=== PATIENT | female | born 1995 ===

== ENCOUNTER 2016-10-17 01:26 | Emergency (ER) | payer BC ==
--- NOTE | 2016-10-17 02:54 | OBHP ---
Datetime: 10/17/2016 01:46 IP Adm Impression: , intrauterine ; No Active Labor IP Adm Impression Other: For Nst IP Admit Plan: Observation/Evaluation; Discharge home Admit Comment, IP Provider: 20yo with IUP at 28wks. Presents here today for NST before evaluati on at the ER for a sore Throat. Pt denies any fever or chills but reports throat pain. NST today is r eactive. Denies VB or LOF. Hendrix- occasional ctx, FHR- category 1, Cx- 0/-3 Assessment: IUP at 28weeks NST- Reactive. Plan: Transfer back to the ER for management of throat pain. Extremities - PN: Normal Abdomen - PN: Normal Lungs - PN: Normal Heart - PN: Normal Thyroid - PN: Normal General - PN: Normal FHR - Baseline A Provider: 150 Comments, ACOG Physical Exam: Abd: Soft,NT, Bs - present Gestation - Est Wks by US: 28.0 IP Chief Complaint: Maternal discomfort NICHD Variability Prov Fetus A: Moderate 6-25bpm NICHD Accel Fetus A IP Provider: [id number] FHR Category Provider Fetus A: Category I Dilatation, Provider: 0
--- NOTE | 2016-10-17 03:28 | C.PDOC ---
History Of Present Illness Patient is a 20 year old female who presents to the ER 28 weeks with a complaint of throat pain and difficulty swallowing for 1 day. Patient denies fever, chills or cough. Chief Complaint (Nursing): ENT Problem History Per: Patient History/Exam Limitations: None Onset/Duration Of Symptoms: Hrs (24) Current Symptoms Are (Timing): Still Present Quality (Mouth/Throat): Tenderness, Other (Difficulty swallowing) Symptoms Have Been: Continuous Past Medical History Reviewed: Historical Data, Nursing Documentation, Vital Signs Vital Signs: Last Vital Signs Temp 98 F 10/17/16 02:59 Pulse 88 10/17/16 02:59 Resp 18 10/17/16 02:59 BP 106/63 10/17/16 02:59 Pulse Ox 100 10/17/16 03:30 - Medical History PMH: No Chronic Diseases Surgical History: No Surg Hx Family History: States: Unknown Family Hx - Social History Hx Tobacco Use: No Hx Alcohol Use: No Hx Substance Use: No - Immunization History Hx Tetanus Toxoid Vaccination: No (not sure of last) Review Of Systems Constitutional: Negative for: Fever, Chills ENT: Positive for: Throat Pain, Other (Difficulty swallowing) Respiratory: Negative for: Cough Physical Exam - Physical Exam Appears: Non-toxic, No Acute Distress Skin: Normal Color, Warm, Dry Head: Atraumatic, Normacephalic Oral Mucosa: Moist Throat: Erythema (Tonsillar), Exudate (Tonsillar), Other (Enlarged Tonsils) Neck: Normal, Supple Lymphatic: Other (Tender cervical nodes) Chest: Symmetrical, No Tenderness Cardiovascular: Rhythm Regular, No Murmur Respiratory: Normal Breath Sounds, No Rales, No Rhonchi, No Wheezing Gastrointestinal/Abdominal: Soft, No Tenderness Neurological/Psych: Oriented x3, Normal Speech, Normal Cognition ED Course And Treatment O2 Sat by Pulse Oximetry: 100 (Room air) Pulse Ox Interpretation: Normal Medical Decision Making Medical Decision Making: Impression: 20 year old female with throat pain. Plan: * Tylenol * Amoxicillin Patient was sent to the OB ED for evaluation of baby, then returned to the ER for medical evaluation. Disposition Counseled Patient/Family Regarding: Need For Followup - Disposition Referrals: Non [facility] Provider, [Primary Care Provider] - Disposition: HOME/ ROUTINE Disposition Time: 03:25 Condition: GOOD Additional Instructions: Tylenol for pain as needed Prescriptions: Amoxicillin [Amoxil 500 mg Cap] 1 cap PO TID #21 cap Instructions: Tonsillitis (ED) Print Language: BRUNEIAN - Clinical Impression Clinical Impression: Sore throat, - Scribe Statement The provider has reviewed the documentation as recorded by the Scribamelie Rosas All medical record entries made by the Reinaldoibamelie were at my direction and personally dictated by me. I have reviewed the chart and agree that the record accurately reflects my personal performance of the history, physical exam, medical decision making, and the department course for this patient. I have also personally directed, reviewed, and agree with the discharge instructions and disposition.
[2016-10-17] MEDS ORDERED: Amoxicillin-Clav 500-125 mg Tab PO ONE (03:50)
[2016-10-17 04:21] VITALS: BP 120/80; PULSE 80; RESP 16; TEMP 97.8
[2016-10-17 04:23] VITALS: O2SAT 100
== END 2016-10-17 04:21 | disposition home or self-care (01) ==
LOC: C.EROB 01:26 → C.ER 01:26
DX: O26.893 Other specified pregnancy related conditions, third trimester (principal); J02.9 Acute pharyngitis, unspecified; Z3A.28 28 weeks gestation of pregnancy